=== PATIENT | female | born 1960 | race African-American/Black ===

== ENCOUNTER 2017-02-25 19:18 | Emergency (ER) | payer OTHER, SELFPAY ==
[2017-02-25 19:58] LABS: #Basophils 0.1 thou/uL (0.0-0.2); #Lymphocytes 1.2 thou/uL (1.20-3.40); #Monocytes 0.3 thou/uL (0.11-0.59); %Basophils 2.4 % (0.0-1.0); %Eosinophils 0.3 % (0.0-10.0); %Lymphocytes 32.9 % (21.0-51.0); %Monocytes 9.1 % (0.0-10.0); %Neutrophils 55.4 % (42.0-75.0); Hemoglobin 15.4 g/dL (12.0-16.0); Mean Corpuscular HGB CONC 31.9 g/dL (32.0-36.0); Mean Corpuscular Hemoglobin 32.8 pg (27.0-31.0); Mean Platelet Volume 9.2 fL (7.4-10.4); Platelet Count 169 thou/uL (130-400); RBC Distribution Width 12.6 % (11.5-14.5); Red Blood Cell (RBC) Count 4.69 mill/uL (4.20-5.40); White Blood Cell (WBC) Count 3.6 thou/uL (4.8-10.8)
[2017-02-25 20:12] LABS: ALT (SGPT) 25 U/L (8-55); AST (SGOT) 30 U/L (5-34); Albumin 4.4 g/dL (3.5-5.0); Alkaline Phosphatase 71 U/L (40-150); BUN (Urea Nitrogen) 10 mg/dL (9.8-20.1); Bilirubin, Total 0.2 mg/dL (0.2-1.2); Calc. Creatinine Clearance 0 mL/min (70-130); Chloride 98 mmol/L (98-107); Estimated GFR-MDRD Greater than 90; Globulin 3.6 g/dL (2.4-3.5); Glucose 123 mg/dL (70-105); Potassium 3.5 mmol/L (3.5-5.1); Sodium 133 mmol/L (136-145)
[2017-02-25 20:13] LABS: CKMB 0.9 ng/mL (0-6.6); Troponin I Less than 0.010 ng/mL (< 0.028)
--- NOTE | 2017-02-25 20:15 | RAD ---
CHEST TWO VIEWS 02/25/17 HISTORY: Chest pain. Dyspnea. COMPARISON: 08/31/15 FINDINGS: The cardiac silhouette is magnified by projection. Pulmonary vasculature is unremarkable. Mediastinum is midline. There is no confluent air space consolidation, pneumothorax, or pleural fluid apparent. Metallic anchor overlies the right shoulder. IMPRESSION: No active cardiopulmonary abnormalities are demonstrated. POS: [facility]
[2017-02-25 20:24] LABS: Calcium 9.7 mg/dL (7.8-10.44); Carbon Dioxide 20 mmol/L (22-29)
[2017-02-25] MEDS ORDERED: predniSONE 20 MG TAB ONE (20:34)
[2017-02-25] MEDS ORDERED: Acetaminophen 500 MG TAB ONE (20:41)
== END 2017-02-25 20:55 | disposition home or self-care (01) ==
LOC: NAV ERS 19:18
DX: J45.901 Unspecified asthma with (acute) exacerbation (principal); F17.210 Nicotine dependence, cigarettes, uncomplicated; I10 Essential (primary) hypertension; E11.9 Type 2 diabetes mellitus without complications; Z79.84 Long term (current) use of oral hypoglycemic drugs; Z79.899 Other long term (current) drug therapy
CPT/HCPCS: 71020; 80053; 82553; 83880; 84484; 85025; 93005; 94640; 94760; J7506; J7620

== ENCOUNTER 2019-02-12 14:15 | Emergency (ER) | payer SELFPAY ==
[2019-02-12] MEDS ORDERED: Amlodipine 5 MG TAB ONE (15:11)
[2019-02-12] MEDS ORDERED: cloNIDine 0.2 MG TAB ONE (15:11)
[2019-02-12] MEDS ORDERED: Furosemide 40 MG TAB ONE (15:11)
--- NOTE | 2019-02-12 15:31 | RAD ---
XR Chest Pa Lat STANDARD History: Productive cough Comparison: Radiograph 2017 Findings: The lungs are without confluent airspace consolidation, pneumothorax, or effusion. Calcifie d granuloma left upper lobe. Cardiac silhouette and mediastinal contours are within normal limits. Low-grade dextro scoliosis lower thoracic spine. Impression: No evidence for pneumonia.
[2019-02-12] MEDS ORDERED: Acetaminophen 325 MG TAB ONE (15:57)
[2019-02-12 16:32] LABS: ALT (SGPT) 31 U/L (8-55); AST (SGOT) 25 U/L (5-34); Albumin 4.5 g/dL (3.5-5.0); Alkaline Phosphatase 106 U/L (40-110); Anion Gap 22 mmol/L (10-20); BUN (Urea Nitrogen) 19 mg/dL (9.8-20.1); Bilirubin, Total 0.3 mg/dL (0.2-1.2); Calc. Creatinine Clearance 0 mL/min (70-130); Calcium 9.7 mg/dL (7.8-10.44); Carbon Dioxide 19 mmol/L (22-29); Chloride 100 mmol/L (98-107); Estimated GFR-MDRD Greater than 90; Globulin 3.6 g/dL (2.4-3.5); Glucose 141 mg/dL (70-105); Potassium 4.1 mmol/L (3.5-5.1); Protein, Total 8.1 g/dL (6.0-8.3); Sodium 137 mmol/L (136-145)
[2019-02-12 16:52] LABS: #Basophils 0.1 thou/uL (0.0-0.2); #Lymphocytes 1.5 thou/uL (1.20-3.40); #Monocytes 0.9 thou/uL (0.11-0.59); #Neutrophils 6.2 thou/uL (1.40-6.50); %Basophils 1.5 % (0.0-1.0); %Eosinophils 0.1 % (0.0-10.0); %Lymphocytes 17.3 % (21.0-51.0); %Monocytes 9.7 % (0.0-10.0); %Neutrophils 71.5 % (42.0-75.0); Hemoglobin 14.3 g/dL (12.0-16.0); Mean Corpuscular HGB CONC 32.3 g/dL (32.0-36.0); Mean Corpuscular Hemoglobin 32.7 pg (27.0-31.0); Mean Platelet Volume 10.1 fL (7.4-10.4); Platelet Count 236 thou/uL (130-400); RBC Distribution Width 12.5 % (11.5-14.5); Red Blood Cell (RBC) Count 4.37 mill/uL (4.20-5.40); White Blood Cell (WBC) Count 8.7 thou/uL (4.8-10.8)
[2019-02-12 16:53] LABS: Bilirubin Moderate (Negative); Blood, Urine Trace (Negative); Clarity Clear (Clear); Glucose, Urine (Dipstick) Negative (Negative); Leukocyte Negative (Negative); Nitrite Negative (Negative); Protein, Urine (Dipstick) 30 mg/dL (Neg-Trace); Urobilinogen 0.2 mg/dL (Less than 2)
[2019-02-12 16:55] LABS: Bacteria/HPF Rare-Few HPF (None Seen); RBC/HPF 0-3 HPF (0-3); Squamous Epithelial 0-3 HPF (0-3)
== END 2019-02-12 17:42 | disposition home or self-care (01) ==
LOC: NAV ERS 14:15
DX: J44.1 Chronic obstructive pulmonary disease with (acute) exacerbation (principal); I10 Essential (primary) hypertension; F17.210 Nicotine dependence, cigarettes, uncomplicated; E11.9 Type 2 diabetes mellitus without complications; Z79.899 Other long term (current) drug therapy; Z79.84 Long term (current) use of oral hypoglycemic drugs; Z79.51 Long term (current) use of inhaled steroids
CPT/HCPCS: 71046; 80053; 81003; 81015; 85025; 87086; 87804; 93005; 94640; J7620

== ENCOUNTER 2020-09-02 17:26 | Emergency (ER) | payer SELFPAY ==
[2020-09-02 18:46] LABS: Hemoglobin 13.4 g/dL (12.0-16.0); Mean Corpuscular HGB CONC 29.7 g/dL (32.0-36.0); Mean Corpuscular Hemoglobin 32.4 pg (27.0-31.0); Mean Platelet Volume 8.3 fL (7.4-10.4); Platelet Count 194 thou/uL (130-400); RBC Distribution Width 12.9 % (11.5-14.5); Red Blood Cell (RBC) Count 4.13 mill/uL (4.20-5.40); White Blood Cell (WBC) Count 5.8 thou/uL (4.8-10.8)
[2020-09-02 18:47] LABS: #Basophils 0.1 thou/uL (0.0-0.2); #Eosinphils 0.2 thou/uL (0.0-0.7); #Lymphocytes 1.6 thou/uL (1.20-3.40); #Monocytes 0.3 thou/uL (0.11-0.59); #Neutrophils 3.7 thou/uL (1.40-6.50); %Basophils 1.4 % (0.0-1.0); %Eosinophils 3.1 % (0.0-10.0); %Monocytes 5.8 % (0.0-10.0); %Neutrophils 62.7 % (42.0-75.0)
[2020-09-02 18:48] LABS: ALT (SGPT) 25 U/L (8-55); Albumin 4.2 g/dL (3.5-5.0); Alkaline Phosphatase 74 U/L (40-110); Anion Gap 18 mmol/L (10-20); BUN (Urea Nitrogen) 14 mg/dL (9.8-20.1); Bilirubin, Total 0.3 mg/dL (0.2-1.2); Calc. Creatinine Clearance 0 mL/min (70-130); Calcium 9.3 mg/dL (7.8-10.44); Carbon Dioxide 22 mmol/L (22-29); Chloride 103 mmol/L (98-107); Globulin 3.4 g/dL (2.4-3.5); Glucose 127 mg/dL (70-105); Protein, Total 7.6 g/dL (6.0-8.3); Sodium 139 mmol/L (136-145)
[2020-09-02 19:00] LABS: AST (SGOT) 28 U/L (5-34); Magnesium 1.8 mg/dL (1.6-2.6)
[2020-09-02] MEDS ORDERED: Azithromycin 250 MG TAB ONE (19:20)
[2020-09-02] MEDS ORDERED: predniSONE 20 MG TAB ONE (19:20)
== END 2020-09-02 19:40 | disposition home or self-care (01) ==
LOC: NAV ERS 17:26
DX: J44.1 Chronic obstructive pulmonary disease with (acute) exacerbation (principal); E11.9 Type 2 diabetes mellitus without complications; I10 Essential (primary) hypertension; F17.210 Nicotine dependence, cigarettes, uncomplicated; Z79.84 Long term (current) use of oral hypoglycemic drugs; Z79.51 Long term (current) use of inhaled steroids; Z79.899 Other long term (current) drug therapy
CPT/HCPCS: 71045; 80053; 83605; 83735; 83880; 84484; 85025; 93005; 94760; J7512; J7620

== ENCOUNTER 2022-03-12 10:59 | Emergency (ER) | payer SELFPAY ==
[2022-03-12] MEDS ORDERED: Acetaminophen 500 MG TAB ONE (11:16)
[2022-03-12 11:36] LABS: #Basophils 0.2 thou/uL (0.0-0.2); #Lymphocytes 1.1 thou/uL (1.20-3.40); #Monocytes 0.5 thou/uL (0.11-0.59); #Neutrophils 5.5 thou/uL (1.40-6.50); %Basophils 2.4 % (0.0-1.0); %Eosinophils 0.1 % (0.0-10.0); %Lymphocytes 14.8 % (21.0-51.0); %Monocytes 6.8 % (0.0-10.0); Hemoglobin 14.5 g/dL (12.0-16.0); Mean Corpuscular HGB CONC 31.6 g/dL (32.0-36.0); Mean Corpuscular Hemoglobin 32.4 pg (27.0-31.0); Mean Platelet Volume 9.2 fL (7.4-10.4); Platelet Count 230 10x3/uL (130-400); RBC Distribution Width 13.3 % (11.5-14.5); Red Blood Cell (RBC) Count 4.48 mill/uL (4.20-5.40); White Blood Cell (WBC) Count 7.3 10x3/uL (4.8-10.8)
[2022-03-12] MEDS ORDERED: Sodium Chloride 0.9% 1,000 ML ONE ×2 (11:47→12:45)
[2022-03-12 11:50] LABS: ALT (SGPT) 42 U/L (8-55); AST (SGOT) 30 U/L (5-34); Albumin 4.3 g/dL (3.5-5.0); Alkaline Phosphatase 80 U/L (40-110); Anion Gap 13 mmol/L (10-20); BUN (Urea Nitrogen) 13 mg/dL (9.8-20.1); Bilirubin, Total 0.3 mg/dL (0.2-1.2); CK (CPK) 253 U/L (29-168); Calc. Creatinine Clearance 0 mL/min (70-130); Calcium 9.3 mg/dL (7.8-10.44); Carbon Dioxide 24 mmol/L (22-29); Chloride 100 mmol/L (98-107); Estimated GFR 93; Globulin 3.3 g/dL (2.4-3.5); Glucose 183 mg/dL (70-105); Potassium 4.2 mmol/L (3.5-5.1); Protein, Total 7.6 g/dL (6.0-8.3); Sodium 133 mmol/L (136-145)
[2022-03-12 12:10] LABS: SARS-CoV-2 NAA Rapid Test Not Detected (NotDetected)
[2022-03-12] MEDS ORDERED: predniSONE 20 MG TAB ONE (13:41)
== END 2022-03-12 14:19 | disposition home or self-care (01) ==
LOC: NAV ERS 10:59
DX: J10.1 Influenza due to other identified influenza virus with other respiratory manifestations (principal); J45.909 Unspecified asthma, uncomplicated; Z20.822 Contact with and (suspected) exposure to COVID-19; Z79.899 Other long term (current) drug therapy; E11.9 Type 2 diabetes mellitus without complications; I10 Essential (primary) hypertension; F17.210 Nicotine dependence, cigarettes, uncomplicated; Z79.84 Long term (current) use of oral hypoglycemic drugs
CPT/HCPCS: 71045; 80053; 82550; 83605; 83880; 84484; 85025; 87040; 87804; 93005; 94760; 96360; 96361; J7050; J7512; J7620; U0002

== ENCOUNTER 2022-08-08 08:18 | Emergency (ER) | payer SELFPAY ==
[2022-08-08] MEDS ORDERED: Ipratropium/Albuterol 3 ML NEB ONE (08:42)
[2022-08-08] MEDS ORDERED: Acetaminophen 500 MG TAB ONE (08:53)
[2022-08-08 09:45] LABS: ALT (SGPT) 22 U/L (8-55); AST (SGOT) 26 U/L (5-34); Albumin 4.1 g/dL (3.5-5.0); Alkaline Phosphatase 103 U/L (40-110); Anion Gap 21 mmol/L (10-20); BUN (Urea Nitrogen) 10 mg/dL (9.8-20.1); Bilirubin, Total 0.5 mg/dL (0.2-1.2); Calc. Creatinine Clearance 0 mL/min (70-130); Calcium 9.2 mg/dL (7.8-10.44); Carbon Dioxide 23 mmol/L (22-29); Chloride 97 mmol/L (98-107); Estimated GFR 83; Globulin 3.7 g/dL (2.4-3.5); Glucose 173 mg/dL (70-105); Potassium 4.1 mmol/L (3.5-5.1); Protein, Total 7.8 g/dL (6.0-8.3); Sodium 137 mmol/L (136-145)
[2022-08-08 10:19] LABS: Hemoglobin 13.9 g/dL (12.0-16.0); Manual Diff?? YES; Mean Corpuscular Hemoglobin 32.7 pg (27.0-31.0); Mean Corpuscular Volume 99.1 fl (78.0-98.0); Mean Platelet Volume 8.8 fL (7.4-10.4); Platelet Count 231 10x3/uL (130-400); RBC Distribution Width 12.5 % (11.5-14.5); Red Blood Cell (RBC) Count 4.24 mill/uL (4.20-5.40); White Blood Cell (WBC) Count 11.7 10x3/uL (4.8-10.8)
[2022-08-08 10:20] LABS: MDiff Complete? YES
[2022-08-08 10:21] LABS: Band 5 % (5-11); Lymphocytes 22 % (21-51); Monocytes 7 % (0-10); Neutrophil 65 % (42-75); Reactive Lymphocytes 1 % (0-10)
[2022-08-08 10:22] LABS: Macrocytosis SLIGHT = 6-15 cells (100X) (0-5/hpf); Platelet Morphology Comment Appears Adequate
[2022-08-08] MEDS ORDERED: Albuterol 2.5 MG/0.5 ML NEB ONE ×2 (10:24→11:49)
[2022-08-08 10:38] LABS: Base Excess-Venous 3.3 mmol/L (-2.0 to 3.0); Bicarbonate (HCO3v) 25.7 mmol/L (22.0-28.0); CO2 Tension (PvCO2) 32.3 mmHg (42.0-51.0); Calcium, Ionized 0.97 mmol/L (1.15-1.33); Chloride 96 mmol/L (98-107); Hemoglobin - Calc 15.8 g/dL (12.0-16.0); Sodium 131 mmol/L (138-145); T. Carbon Dioxide 26.7 mmol/L (22.0-28.0); vO2 Saturation-calc 98.7 % (60.0-85.0)
[2022-08-08] MEDS ORDERED: methylPREDNISolone Sod Succ/PF 125 MG/2 ML VIAL ONE (11:49)
[2022-08-08] MEDS ORDERED: Azithromycin 500 MG VIAL ONE (13:20)
[2022-08-08] MEDS ORDERED: Sodium Chloride 0.9% 250 ML 250 ML ONE (13:20)
[2022-08-08] MEDS ORDERED: Sodium Chloride 0.9% 1,000 ML ONE (15:30)
== END 2022-08-08 18:28 | disposition home or self-care (01) ==
LOC: NAV ERS 08:18
DX: J44.1 Chronic obstructive pulmonary disease with (acute) exacerbation (principal); E11.9 Type 2 diabetes mellitus without complications; I10 Essential (primary) hypertension; F17.210 Nicotine dependence, cigarettes, uncomplicated
CPT/HCPCS: 36415; 71045; 80053; 82330; 82803; 83605; 84443; 84484; 85025; 87040; 87804; 96365; 96375; J0456; J2930; J7050; J7611; J7620

== ENCOUNTER 2024-01-21 17:19 | Emergency (ER) | payer SELFPAY ==
[2024-01-21] MEDS ORDERED: Acetaminophen 325 MG TAB ONE (18:20)
== END 2024-01-21 19:53 | disposition home or self-care (01) ==
LOC: NAV ERS 17:19
DX: J06.9 Acute upper respiratory infection, unspecified (principal); R00.0 Tachycardia, unspecified; J44.9 Chronic obstructive pulmonary disease, unspecified; E11.9 Type 2 diabetes mellitus without complications; I10 Essential (primary) hypertension; F17.210 Nicotine dependence, cigarettes, uncomplicated
CPT/HCPCS: 71046; 87428